=== PATIENT | female | born 1995 | race American Indian/Alaskan Native ===

== ENCOUNTER 2018-01-31 17:32 | Emergency (ER) | payer SELFPAY ==
[2018-01-31 18:57] VITALS: BP 121/82
[2018-02-01 00:11] LABS: Bilirubin,Urine NEG (Negative); Blood,Urine MOD (Negative); Color,Urine Yellow (Yellow); Mucus,Urine 1+ /HPF; Protein,Urine <15 mg/dL mg/dL (Negative); Urobilinogen,Urine < 2.0 mg/dL (<2.0)
[2018-02-01 00:15] LABS: HCG Qualitative,Urine Negative (Negative)
--- NOTE | 2018-02-01 00:26 | Emergency Department Report ---
ED Female HPI - General Chief complaint: Urogenital-Female Stated complaint: BACK PAIN/ Time Seen by Provider: 01/31/18 23:53 Source: patient Mode of arrival: Ambulatory Limitations: No Limitations - History of Present Illness Initial comments: 42-year-old Afro-[place] female presents to the emergency room for early with urination and with vaginal discharge without odor. She reports it started on Wednesday. Patient presents she is sexually active with a male her . Patient denies any pelvic pain no vaginal bleeding. Takes no medications on a daily basis has no known drug allergies. Denies any fever chills nausea vomiting. MD Complaint: vaginal discharge -: days(s) (4) Severity scale (0 -10): 0 Are you Now?: No Last Menstrual Period: 12/31/17 EDC: 10/07/18 Associated Symptoms: vaginal discharge - Related Data Sexually active: Yes (men 1 partner) : 1 Para: 1 Allergies Allergy/AdvReac Type Severity Reaction Status Date / Time No Known Allergies Allergy Unverified 01/31/18 18:52 ED Review of Systems ROS: Stated complaint: BACK PAIN/ Other details as noted in HPI ED Past Medical Hx - Past Medical History Previous Medical History?: No - Surgical History Past Surgical History?: Yes Additional Surgical History: C- SECTION - Social History Smoking Status: Never Smoker Substance Use Type: Marijuana ED Physical Exam - General Limitations: No Limitations ED Course Vital Signs 01/31/18 18:54 Temperature 98.1 F Pulse Rate 77 Respiratory 18 Rate Blood Pressure 121/82 O2 Sat by Pulse 100 Oximetry Critical care attestation.: If time is entered above; I have spent that time in minutes in the direct care of this critically ill patient, excluding procedure time. ED Disposition Clinical Impression: Vaginal discharge Disposition: DC-01 TO HOME OR SELFCARE Is pt being admited?: No Does the pt Need Aspirin: No Condition: Stable Additional Instructions: Please follow-up with your primary care provider. Your urine was negative for bacteria and UTI. Your vaginal wet prep was negative for yeast negative for Trichomonas and negative for bacteria vaginosis. Your gonorrhea and chlamydia test is pending. I recommend following up with your primary care provider or OB /OPHTHALMOLOGIST RETINA SPECIALIST. Referrals: PRIMARY CARE, [Primary Care Provider] - 3-5 Days Forms: Work/School Release Form(ED)
== END 2018-02-01 02:23 | disposition home or self-care (01) ==
LOC: ED 17:32
DX: N89.8 Other specified noninflammatory disorders of vagina (principal); F12.10 Cannabis abuse, uncomplicated
CPT/HCPCS: 81001; 81025; 87210; 87591; 99284